=== PATIENT | female | born 1965 | race Caucasian/White ===

== ENCOUNTER 2021-05-10 18:54 | Emergency (ER) ==
[~2021-05-10] VITALS: Ht 160 cm; Wt 101.8 kg
== END 2021-05-10 20:20 | disposition left against medical advice (07) ==
LOC: M ED 18:54
DX: Z53.21 Procedure and treatment not carried out due to patient leaving prior to being seen by health care provider (principal)

== ENCOUNTER 2023-04-06 12:02 | Emergency (ER) | payer OTHER, SELFPAY ==
[~2023-04-06] VITALS: Ht 162.6 cm; Wt 102.9 kg
[2023-04-06] MEDS ORDERED: PRIL20TA2 PO (12:14)
[2023-04-06] MEDS ORDERED: ACET-683 PO (12:14)
[2023-04-06] MEDS: CYCLOBENZAPRINE 10MG TABLET PO ONE (14:41)
[2023-04-06] MEDS: predniSONE 20 MG TAB PO ONE (14:41)
[2023-04-06] MEDS ORDERED: CYCL-707 PO (14:57)
[2023-04-06] MEDS ORDERED: PRED20TA PO (14:57)
[2023-04-06 15:14] VITALS: BP 135/85; TEMP 97.8; O2SAT 96
== END 2023-04-06 15:15 | disposition home or self-care (01) ==
LOC: M ED 12:02
DX: S13.4XXA Sprain of ligaments of cervical spine, initial encounter (principal); M25.511 Pain in right shoulder; V49.40XA Driver injured in collision with unspecified motor vehicles in traffic accident, initial encounter; M50.30 Other cervical disc degeneration, unspecified cervical region; K21.9 Gastro-esophageal reflux disease without esophagitis; F17.200 Nicotine dependence, unspecified, uncomplicated; Z88.0 Allergy status to penicillin; Z88.5 Allergy status to narcotic agent; Z91.048 Other nonmedicinal substance allergy status; Z98.84 Bariatric surgery status; Z79.52 Long term (current) use of systemic steroids; Z79.899 Other long term (current) drug therapy; Y93.89 Activity, other specified; Y92.410 Unspecified street and highway as the place of occurrence of the external cause; Y99.9 Unspecified external cause status
CPT/HCPCS: 99283; J7512

== ENCOUNTER → 2024-10-16 | Outpatient (REF) ==
[~2024-10-16] MED LIST: ACET-683 PO; CYCL-707 PO; PRED20TA PO; PRIL20TA2 PO
== END ==
LOC: M PLALAB 11:53 → M PLAIMG 11:53
PROVIDERS: ATTEND Internal Medicine
DX: R52 Pain, unspecified (principal)

== ENCOUNTER → 2024-11-28 | Outpatient (CLI) | payer OTHER ==
[~2024-11-28] MED LIST changes: +PROHANCE 279.3MG/ML 15ML VIAL As Ordered ONE; +PROHANCE 279.3MG/ML 5ML VIAL As Ordered ONE
== END ==
LOC: M RAD 10:24
PROVIDERS: ATTEND Otolaryngology
DX: H90.42 Sensorineural hearing loss, unilateral, left ear, with unrestricted hearing on the contralateral side (principal)
CPT/HCPCS: 70553; A9576